=== PATIENT | female | born 1950 | race Caucasian/White ===

== ENCOUNTER 2016-12-16 20:55 | Emergency (ER) | payer OTHER ==
[~2016-12-16] VITALS: Ht 167.6 cm; Wt 68.0 kg
[2016-12-16] MEDS ORDERED: ZOLOFT PO (21:10)
[2016-12-16] MEDS ORDERED: ESOMEPRAZOLE MA40 MG PO (21:11)
[2016-12-16] MEDS ORDERED: EFFEXOR XR150 MG PO (21:11)
== END 2016-12-16 23:32 | disposition home or self-care (01) ==
LOC: SED 20:55
DX: I10 Essential (primary) hypertension (principal); R51 Headache; F17.210 Nicotine dependence, cigarettes, uncomplicated; Z79.899 Other long term (current) drug therapy
CPT/HCPCS: 99283